=== PATIENT | female | born 2000 | race Caucasian/White ===

== ENCOUNTER 2021-01-29 16:14 | Emergency (ER) | payer OTHER ==
[~2021-01-29] VITALS: Ht 160 cm; Wt 54.4 kg
== END 2021-01-29 18:36 | disposition home or self-care (01) ==
LOC: ER 16:14
DX: A49.3 Mycoplasma infection, unspecified site (principal); B34.9 Viral infection, unspecified; Z03.818 Encounter for observation for suspected exposure to other biological agents ruled out